=== PATIENT | male | born 1970 | race African-American/Black ===

== ENCOUNTER → 2017-02-15 | Outpatient (CLI) | payer BC, OTHER ==
[~2017-02-15] MED LIST: NORCO 5-325 TA1 EACH PO; PRED FORTE 1% EY5 M1 OP; TOBREX5 ML OPHTHALMIC
== END ==
LOC: NUC 08:34
DX: R10.84 Generalized abdominal pain (principal)

== ENCOUNTER 2017-03-15 05:31 | Day surgery (SDC) | payer BC, OTHER ==
[~2017-03-15] VITALS: Ht 167.6 cm; Wt 63.0 kg
--- NOTE | ~2017-03-15 | S ---
[facility] [place] [address] SURGICAL PATH RPT PROCEDURE Name: CASEY VICENTE Room #: DEP [facility]#: [id number] Admission: 03/15/17 Date of : 74 Discharge: 03/15/17 Report #: [id number] Path Case #: [id number] PATHOLOGY REPORT COLLECTION DATE: 03/15/2017 RECEIVED DATE: 03/15/2017 SUBMITTING PHYS: Dr. Jarret Swartz OTHER PHYS: Dr. Sudarshan Cano SPECIMEN(S) RECEIVED: A.Gallbladder * * * * * * * * * * * * FINAL DIAGNOSIS: "Gallbladder," cholecystectomy: - Chronic cholecystitis. (CLW:; d/t: 03/17/17) PATHOLOGIST: Tonya Eldridge M.D. REPORT ELECTRONICALLY SIGNED BY: Tonya Eldridge M.D. DATE/TIME: 03/17/2017 14:03 * * * * * * * * * * * * GROSS PATHOLOGY: Received in formalin labeled "Casey Vicente Jr., gallbladder," is a 7.0 x 3.1 x 2.9 cm, intact gallbladder with green arteaga serosal surfaces. Opening the gallbladder reveals velvety and bile-stained mucosa and an average wall thickness of 0.1 cm. Calculi are not present and no masses are noted grossly. Technical Account Manager sections from the body and fundus are submitted along with the proximal margin in cassette A1. (KAH; 03/16/2017) CLINICAL HISTORY: Biliary dyskinesia INITIAL CPT CODE(S): A; 69201 Professional services performed by [facility] at [facility] [address], [place] [address] Technical services performed by [facility] at [address] [place] [id number]. [facility] [address] [place] [address] SURGICAL PATH RPT PROCEDURE Name: CASEY VICENTE Room #: DEP PROzzie Parrish#: [id number] Admission: 03/15/17 Date of : 74 Discharge: 03/15/17 Report #: [id number] Path Case #: [id number] [facility] [address] [address] PHONE: [phone] DIRECTOR: Darrius Clark M.D. * * * END OF REPORT * * *
--- NOTE | ~2017-03-15 | O ---
[facility] [place] [address] OPERATIVE REPORT Name: KADEEM BOOTH Room #: 150-4 [facility]#: [id number] Admission: 03/15/17 Attend Phys: Jarret Swartz MD Discharge: Date of : 74 Report #: [id number] THIS REPORT FOR: //name// CC: Srinivasa Cano DO Jarret Swartz DATE OF SERVICE: 03/15/2017 PATIENT OF: Dr. Jarret Swartz, Dr. Srinivasa Headley and Dr. Sudarshan Cano. PREOPERATIVE DIAGNOSIS: Biliary dyskinesia. POSTOPERATIVE DIAGNOSIS: Biliary dyskinesia with probable Crohn's disease and a Meckel's diverticulitis. PROCEDURE: Diagnostic laparoscopy with laparoscopic cholecystectomy. SURGEON: Jarret Swartz M.D. TOE POUNDER: Deya Valdez RN. ANESTHESIA: General. DESCRIPTION OF PROCEDURE: The patient was brought to the operating room and placed on operating room table in the supine position. Sequential compression devices were in place for DVT prophylaxis. He received an appropriate preoperative dose of antibiotics. The patient underwent a general endotracheal anesthesia and the abdomen was then prepped and draped in a sterile fashion. Skin and subcutaneous tissue around the umbilicus was then infiltrated with 0.5% Marcaine. An infraumbilical skin incision was then performed using #11 scalpel blade. Hemostasis obtained using electrocautery. Dissection was carried down through subcutaneous tissue to the fascia, which was then grasped between 2 Vicki clamps and incised with a curved Ching scissors and electrocautery. The peritoneum was entered and a pursestring suture of 0 Vicryl was then placed in the fascia. A 12-mm disposable Destini port was then inserted through the opening and held into place with the pursestring suture. Pneumoperitoneum was obtained to a level of 10-15 mmHg. The laparoscope was then inserted through this port and exploration was performed, which revealed a slightly dilated gallbladder without any evidence of acute cholecystitis. Upon further examination, the patient was found to have a Meckel's diverticulum, which appeared to be mildly abnormal with some thickening and fat wrapping. Then upon further inspection there appeared to be a thickened loop of terminal ileum and distal ileum with some fat wrapping and obvious mesenteric nodes. This appeared to be active Crohn's disease. I was not able to identify the appendix. It [address] [address] OPERATIVE REPORT Name: KADEEM BOOTH Sara [facility] #: 150-4 [facility] [id number] Admission: 03/15/17 Attend Phys: Jarret Swartz MD Discharge: Date of : 74 Report #: [id number] appeared to be retrocecal. The remaining small bowel appeared normal. Colon appeared normal. The liver was normal. Stomach appeared normal. Spleen was normal. I decided to proceed with the laparoscopic cholecystectomy for biliary dyskinesia, but quite probably, most of his symptoms are due to this distal ileal disease, most likely Crohn's disease. I placed 2 lateral 5-mm Surgiport as well as an upper midline 11-mm Surgiport, all inserted under direct visualization after infiltration with 0.5% Marcaine. The gallbladder was grasped and retracted superiorly. Adhesions around the gallbladder were carefully dissected free. The cystic duct and cystic artery were carefully dissected free. The cystic artery was doubly clipped on each side and divided with the scissors. The cystic common bile duct junction was clearly identified and the cystic duct was then triply clipped on the common bile duct side and doubly clipped on the gallbladder side and divided with the scissors. The gallbladder was then dissected free from the bed using the hook electrocautery. Prior to completing the dissection, the gallbladder was retracted superiorly and the bed inspected for hemostasis, which was found to be intact. The gallbladder was then transected and brought out through the upper midline port and sent as specimen to pathology. The port was then returned to the abdomen. The area was then copiously irrigated with warm saline solution, which was suctioned free and hemostasis was checked and found to be intact. I then took pictures of the gallbladder and abnormal small bowel as well as some normal small bowel. 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 Srinivasa Headley. The ports were then all removed and hemostasis intact at each port site. The periumbilical fascia was then closed using the 0 Vicryl pursestring suture. The upper midline fascia was then closed using 0 Vicryl [id number] suture. Skin was then closed using interrupted vertical mattress 5-0 nylon sutures and the wound was dressed with Band-Aids. The patient was then awakened from the general endotracheal anesthesia, extubated and taken to recovery room in good condition. Estimated blood loss was approximately 5 mL and the patient tolerated the procedure well. All sponge, lap and instrument counts correct times 2. By: 1204 [id number] Jarret Swartz MD /nt
[2017-03-15 09:54] VITALS: BP 95/52
[2017-03-15] MEDS ORDERED: NORCO 5-325 TA1 EACH PO (12:12)
[2017-03-15 16:15] VITALS: BP 102/65
[2017-03-15 18:10] VITALS: BP 102/65
== END 2017-03-15 19:00 ==
LOC: OR 05:31 → TBA 05:32 → OR 13:12 → 4E 13:33 → OR 14:41
DX: K82.8 Other specified diseases of gallbladder (principal); Q43.0 Meckel's diverticulum (displaced) (hypertrophic); K50.90 Crohn's disease, unspecified, without complications
CPT/HCPCS: 10783; 50010; 50101; 50411; 50555; 50558; 51474; 51489; 52266; 53314; 56462; 56524; 56528; 62110; 62900; 70005